=== PATIENT | female | born 1985 | race Two or more races ===

== ENCOUNTER 2016-08-10 08:38 | Inpatient (IN) | payer OTHER ==
[2016-08-10 08:56] VITALS: BMI 34.0
[2016-08-10] MEDS ORDERED: CEFAZOLIN SODIUM 2 GRAM DUPLEX 2 G in Premix (D5W) 50 ml 1 EACH IV PRN (09:59)
[2016-08-10] MEDS ORDERED: MORPHINE SULFATE (DURAMORPH) 1 MG/ML 10ML AMP ONE (10:08)
[2016-08-10] MEDS ORDERED: FAMOTIDINE 10 MG/ML 2ML VIAL ONE (10:08)
[2016-08-10] MEDS ORDERED: FENTANYL 100 MCG/2 ML VIAL ONE (10:08)
[2016-08-10] MEDS ORDERED: ONDANSETRON 4 MG/2ML 2 ML VIAL ONE (10:08)
[2016-08-10] MEDS ORDERED: METOCLOPRAMIDE HCL 5 MG/ML 2ML VIAL ONE (10:08)
[2016-08-10] MEDS ORDERED: OXYTOCIN 10 UNITS/ML VIAL ONE (10:08)
[2016-08-10] MEDS ORDERED: IV START KIT ONE (10:09)
[2016-08-10] MEDS ORDERED: CEFAZOLIN SODIUM 2 GRAM DUPLEX 50 ML IV ONE (10:10)
--- NOTE | 2016-08-10 10:11 | PDOC36 ---
Provider Note Note: cc: Admission H&P HPI: 30 y.o. year old SHIRAZ 08/25/2016, by Last Menstrual Period at 37w6d who presented to L&D this AM with contractions q3-10 min. She was triaged and noted to have a SVE of 3/50/-2. REVIEW OF SYSTEMS GENERAL:~ No fever or headache EYES:~ No double or blurry vision. CARDIOVASCULAR:~ No chest pain. RESPIRATORY:~ No severe shortness of breath or cough. GASTROINTESTINAL:~ No nausea or vomiting or right upper quadrant pain.~ PSYCHIATRIC:~ No anxiety or depression. PROBLEMS Normal History of CS History of Delivery Migraine Headaches OB HISTORY #: 1, Date: 12/23/05, Sex: Male, Weight: 3.175 kg (7 lb), GA: 39w0d, Delivery: Vaginal, Spontaneous Delivery, Apgar1: None, Apgar5: None, Living: Yes, Comments : None #: 2, Date: 08/24/07, Sex: Female, Weight: 2.551 kg (5 lb 10 oz), GA: 35w6d, Delivery: , Classical, Apgar1: None, Apgar5: None, Living: Yes, Comments: Water broke prematurely, breeched baby.~ #: 3, Current PSH Section Hernia Repair Appendectomy Shoulder Arthroscopy SOC HX Reports that she has never smoked. She has never used smokeless tobacco. She reports that she does not drink alcohol or use illicit drugs. ALL No Known Allergies MEDICATIONS ~ docusate sodium (COLACE) 100 MG capsule, Take 1 capsule (100 mg total) by mouth 2 (two) times a day., Disp: 60 capsule, Rfl: 1 ~ Vit-Fe Fumarate-FA ( PLUS) 27-1 MG tablet, Take 1 tablet by mouth daily., Disp: 90 each, Rfl: 3 ~ Pyridoxine HCl (VITAMIN B-6) 25 MG tablet, Take 1 tablet (25 mg total) by mouth 3 (three) times a day as needed (Nausea)., Disp: 90 tablet, Rfl: 1 PHYSICAL EXAMINATION VITAL SIGNS:~AFVSS Estimated body mass index is 34.30 ~ Weight as of 08/08/16: 82.4 kg (181 lb 10.5 oz). Total weight gain is 8.01 kg (17 lb 10.5 oz) FHT:~ 135 moderate variability, positive accels, no decels, category I Pinch:~ q3-10 min SVE:~ 3/50-2 GENERAL:~ No distress CARDIOVASCULAR:~ Regular rate and rhythm, no murmur, JVD or pedal edema. RESPIRATORY:~ Clear to auscultation bilaterally, respiratory effort is nonlabored at rest. GASTROINTESTINAL:~ Gravid no fundal tenderness NEUROLOGIC:~ Deep tendon reflexes are 2+ in the knees.~ Cranial nerves II-XII are grossly intact. PSYCHIATRIC:~ Alert and oriented x3, judgement and memory is intact, mood is pleasant. LABS & STUDIES A+ Antibody- Rubella Immune Hep B- HIV- GC/Chlamydia- Trep- Hct 37.9% GBS Neg ULTRASOUNDS 9 wk - c/w lmp. live iup with movements noted. 19 wk - c/w lmp. girl. post placenta, no previa. normal survey and fluid. Done in [place]. 30 wk - Performed by perinatology. Growth at 37th percentile. Posterior placenta without previa. Normal amount of fluid. Normal survey. ASSESSMENT 30 y.o. year old SHIRAZ 08/25/2016, by Last Menstrual Period at 37w6d in labor PLAN Admit for repeat CS. I reviewed the risks, benefits and alternatives of a section with the patient. She understands the risk of bleeding (she states that she would accept blood products if medically necessary and consent was obtained after counseling), infection (wound infection - possibly leading to wound dehiscence, or pelvic infection) and damage to surrounding organs/tissues (including, but not limited to, bladder, bowel, ureters, uterus, ovaries/tubes, blood vessels and nerves - as well as possible fistula formation). She understands that any of the above could necessitate further treatment or surgeries. We also reviewed the alternative to section (vaginal delivery), but she would like to proceed with section. Patient understands and agrees. All questions were answered. Joe Hallman MD MPH
[2016-08-10] MEDS: LACTATED RINGERS 1,000 ML IV SCH ×2 (10:20→20:15)
[2016-08-10] MEDS ORDERED: CITRIC ACID/SODIUM CITRATE 15 ML UDCUP PO ONE (10:22)
[2016-08-10 10:44] LABS: HEMATOCRIT 38.7 % (37.0-47.0); HEMOGLOBIN 13.2 gm/l (12.0-16.0); MEAN CELL VOLUME 87.6 fl (81.0-99.0); MEAN CORPUSCULAR HEMOGLOBIN 29.9 pg (27.0-31.0); MEAN CORPUSCULAR HGB CONC 34.1 g/dl (33.0-37.0); RED CELL DISTRIBUTION WIDTH 13.7 % (11.5-14.5)
[2016-08-10] MEDS ORDERED: EPHEDRINE SULFATE UD SYR 25 MG 25 MG/5 ML SYRINGE IV ONE (11:19)
[2016-08-10] MEDS ORDERED: MORPHINE SULFATE 4 MG/ML SYRINGE IV PRN (11:30)
[2016-08-10] MEDS ORDERED: NALBUPHINE HCL 20 MG/ML AMP IV PRN (11:30)
[2016-08-10] MEDS ORDERED: PROMETHAZINE HCL 25 MG/ML VIAL IM PRN (11:30)
[2016-08-10] MEDS ORDERED: MORPHINE SULFATE 10 MG/ML SYRINGE IV PRN (11:30)
[2016-08-10] MEDS ORDERED: ONDANSETRON 4 MG/2ML 2 ML VIAL IV PRN ×2 (11:30→12:42)
[2016-08-10] MEDS ORDERED: HYDROMORPHONE HCL 1 MG/ML SYRINGE IV PRN (11:30)
[2016-08-10] MEDS ORDERED: NALOXONE HCL 0.4 MG/ML VIAL IV PRN (11:30)
[2016-08-10] MEDS ORDERED: HYDROMORPHONE HCL 2 MG/ML SYRINGE IV PRN (11:30)
[2016-08-10] MEDS ORDERED: DIPHENHYDRAMINE HCL 50 MG/1 ML VIAL IV PRN ×2 (11:30→12:42)
[2016-08-10] MEDS ORDERED: MORPHINE SULFATE 2 MG/ML SYRINGE IV PRN (11:30)
[2016-08-10] MEDS ORDERED: EPHEDRINE SULFATE 50 MG/ML 1ML VIAL IV PRN (11:30)
[2016-08-10] MEDS ORDERED: MIDAZOLAM HCL 1 MG/ML 2ML VIAL ONE (11:57)
[2016-08-10] MEDS ORDERED: KETOROLAC TROMETHAMINE 30 MG/ML 1 ML VIAL ONE (12:01)
--- NOTE | 2016-08-10 12:36 | PCMBPN ---
Brief Post Op Note: Date of Procedure: 08/10/16 Start Time: 11:29 Preoperative Diagnosis: 1. Term IUP, h/o c sxn desires repeat csxn and btl. labor. Postoperative Diagnosis: 1. same Procedure: rcs with btl Surgeon: Nuzhat Ball MD Assist:Iam Hallman MD Anesthesia: Joyce Theodore CRNA, spinal Findings: vertex girl, normal tubes/ovaries/placenta. heart shaped uterus. Condition: stable Complications: none IV Fluids: 2400 mLs of LR Urine Output: 100 mLs Estimated Blood Loss: 500 mLs Tourniquet Time: N/A Specimens: b fallopian tubes Implants: n/a Drains: [N/A]
[2016-08-10] MEDS ORDERED: LACTATED RINGERS 1,000 ML IV.SOLN ONE (12:39)
[2016-08-10] MEDS ORDERED: DIPHENHYDRAMINE HCL 25 MG CAPSULE PO PRN (12:42)
[2016-08-10] MEDS ORDERED: LANOLIN 50 APPLIC/7G TUBE TP PRN (12:42)
--- NOTE | 2016-08-10 13:02 | OP ---
Manisha Frazier : 1985 DATE OF SURGERY: 08/10/2016 PREOPERATIVE DIAGNOSES: 1. Term intrauterine . 2. History of section desiring repeat section with tubal ligation. 3. Labor. POSTOPERATIVE DIAGNOSES: 1. Term intrauterine . 2. History of section desiring repeat section with tubal ligation. 3. Labor. PROCEDURE: Repeat section with bilateral tubal ligation. SURGEON: Nuzhat Ball M.D. ADMINISTRATIVE ASSISTANT OFFICE MANAGER: Dr. Joe Hallman. ANESTHESIA: Performed by Joyce Theodore CRNA, Spinal. BRIEF DESCRIPTION: This is a 30-year-old G3,P2 who presented to [facility] in labor. Given her history of section she was taken back for repeat section with bilateral tubal ligation. DESCRIPTION: Patient was taken to the operating room where spinal anesthesia was placed without difficulty. She was then placed in a supine position and prepped and draped for sterile procedure. A pfannenstiel incision was then made sharply over a previous incision through the subcutaneous tissue to the level of the rectus fascia. The rectus fascia was then transversely incised with Ogden scissors. The anterior fascia was released from the underlying rectus muscle with blunt dissection and Ogden scissors. This was also performed inferiorly. The scar tissue and rectus muscles were then with blunt dissection and the parietal peritoneum was entered with blunt dissection as well. Gentle traction was applied for excellent visualization of the uterus. Bladder blade was placed. The vesicouterine peritoneum was then transversely incised with Metzenbaum scissors for the development of a bladder flap and the bladder blade was then replaced. The uterus was then entered sharply and the incision was extended laterally with gentle traction. The bag of gracia was then opened and was noted to be clear fluid. The was then vertex presentation and the head was flexed and elevated through the uterine incision. The rest of the female infant was then delivered with moderate fundal pressure. The oropharynx was bulb suctioned. The infant was dried and delay cord clamping was obtained in about a minute and a half. The cord was then clamped and cut and infant passed to registered nurse for resuscitation. Cord blood was collected and sent to the lab. Placenta was then delivered with gentle traction and the remaining blood contents wipe free with a clean dry lap. The uterus was delivered onto the abdominal wall and the remaining blood contents in the uterus were wiped free with a clean dry lap and the incision was grasped with Maradiaga clamps and then closed with 0 Vicryl running suture in the usual fashion. A extra figure of eight stitch was placed in the midline of the incision for excellent hemostasis. Attention was then turned to each fallopian tube which was then ligated as follows: proximal section was grasped with a Fayette clamp and doubly ligated with Chromic suture, an approximately 1 cm section was cut with Metzenbaum scissors and sent to the lab for assurance of fallopian origin. The mesosalpinx were then cauterized with good hemostasis. The ovaries appeared within normal limits. The remaining blood contents in the abdominal cavity were wiped free with a clean dry lap and the uterus was then placed back into the abdominal cavity. Once again, the incision was inspected and was hemostatic. The parietal peritoneum was then reapproximated with 0 Vicryl running suture in the usual fashion. There was no subfascial bleeding and the fascia was then closed with 0 Vicryl running suture starting at each corner and proceeding towards the midline. Subcutaneous tissue showed excellent hemostasis and 3 approximating stitches were placed for excellent closure of the subcutaneous tissue. The skin was then closed with a Von needle without difficulty and with excellent cosmetic results. All sponge and needle counts were reported as correct. Estimated blood loss was 500 mL. Urine output was 2400 mL. Urine was 100 mL. Patient was transported to postoperative recovery room in excellent condition. JOB: [id number]
[2016-08-10] MEDS: KETOROLAC TROMETHAMINE 30 MG/ML 1 ML VIAL IV PRN ×2 (17:09→23:01)
[2016-08-10] MEDS: DOCUSATE SODIUM 100 MG CAPSULE PO SCH (20:59)
[2016-08-11] MEDS: KETOROLAC TROMETHAMINE 30 MG/ML 1 ML VIAL IV PRN ×2 (05:14→11:11)
[2016-08-11] MEDS: LACTATED RINGERS 1,000 ML IV SCH (06:22)
[2016-08-11 06:48] LABS: HEMATOCRIT 33.6 % (37.0-47.0); HEMOGLOBIN 11.3 gm/l (12.0-16.0)
--- NOTE | 2016-08-11 08:41 | PDOC44 ---
- Subjective Day: 1 Reports Flatus, Reports Pain Tolerable, Reports , Reports Lochia Light, Reports Tolerating Regular Diet, Denies Nausea, Denies Vomiting, Denies Fever - Objective Temp Pulse Resp BP Pulse Ox 98.9 F 85 16 99/55 100 08/11/16 08:15 08/11/16 08:15 08/11/16 08:15 08/11/16 08:15 08/10/16 14:19 Lab Results 08/11/16 08/10/16 06:15 10:20 WBC 12.4 H RBC 4.42 Hgb 11.3 L 13.2 Hct 33.6 L 38.7 Plt Count 257 Current Medications Generic Name Dose Route Start Last Admin Trade Name Freq PRN Reason Stop Dose Admin Diphenhydramine HCl 25 - 50 mg 08/10/16 12:42 Benadryl PO Q6H PRN Itching (Mild/Moderate) Diphenhydramine HCl 25 - 50 mg 08/10/16 12:42 Benadryl IV Q6H PRN Itching (Severe) Diphenhydramine HCl 25 - 50 mg 08/10/16 11:30 Benadryl IV 08/11/16 11:30 Q4H PRN Itching Docusate Sodium 100 mg 08/10/16 21:00 08/10/16 20:59 Colace PO 100 mg BID DARRYL Administration Emollient Ointment 1 applic 08/10/16 12:42 [id number] TP PRN PRN sore nipples Ephedrine Sulfate 5 - 10 mg 08/10/16 11:30 Ephedrine Sulfate IV 08/11/16 11:30 Q5M PRN Hydromorphone HCl 0.5 - 2 mg 08/10/16 11:30 Dilaudid IV 08/11/16 11:30 Q1H PRN Pain (Breakthrough) Hydromorphone HCl 0.5 - 2 mg 08/10/16 11:30 Dilaudid IV 08/11/16 11:30 Q1H PRN Pain Ibuprofen 600 mg 08/10/16 12:42 Motrin PO Q6H PRN Pain Ketorolac Tromethamine 30 mg 08/10/16 17:00 08/11/16 05:14 Toradol IV 30 mg Q6H PRN Administration Pain (Mild/Moderate) Morphine Sulfate 1 - 5 mg 08/10/16 11:30 08/10/16 14:08 Morphine Sulfate IV 08/11/16 11:30 2 mg Q1H PRN Administration Pain (Breakthrough) Morphine Sulfate 1 - 5 mg 08/10/16 11:30 Morphine Sulfate IV 08/11/16 11:30 Q1H PRN Pain (Breakthrough) Morphine Sulfate 1 - 5 mg 08/10/16 11:30 Morphine Sulfate IV 08/11/16 11:30 Q1H PRN Pain (Breakthrough) Multivi/Iron Carb/Fe Sulf/FA/Prenat 1 tab 08/11/16 09:00 Plus PO DAILY DARRYL Nalbuphine HCl 1 - 5 mg 08/10/16 11:30 Nubain IV 08/11/16 11:30 Q4H PRN Itching Naloxone HCl 0.2 - 0.4 mg 08/10/16 11:30 Narcan IV 08/11/16 11:30 Q5M PRN Ondansetron HCl 4 mg 08/10/16 12:42 Zofran IV Q6H PRN Nausea/Vomiting Ondansetron HCl 4 mg 08/10/16 11:30 Zofran IV 08/11/16 11:30 Q6H PRN Nausea/Vomiting Oxycodone/Acetaminophen 1 - 2 tab 08/10/16 12:42 Percocet 5/325 PO Q4H PRN Pain (Moderate) Promethazine HCl 6.25 - 12.5 mg 08/10/16 11:30 Phenergan IM 08/11/16 11:30 Q4H PRN Nausea/Vomiting Sodium Chloride 10 ml 08/10/16 17:00 08/11/16 03:17 Normal Saline 10ml Flush IV Not Given Q8HR DARRYL Sodium Chloride 10 ml 08/10/16 10:00 08/11/16 05:15 Normal Saline 10ml Flush IV 10 ml PRN PRN Administration - Physical Exam General: Afebrile, No Acute Distress Psych/Mental Status: Mood/Affect Appropriate, Bonding Well Lungs: Clear to Auscultation Bilaterally Cardiovascular: Regular Rate and Rhythm, Murmur (2/6, flow murmur) Breast: Soft, Skin intact Fundus: Firm, Midline, At Umbilicus Extremities: No Edema, No Tenderness Skin: Warm, Dry, No Rash Wound SENIOR TECHNICAL PROGRAM MANAGER: Dressing in Place, Dressing Clean/Dry/Intact, No Shadow Drainage - Problems:Assessment/Plan (1) delivery delivered Status: AcuteAssessment/Plan: Doing well. Routine post op care. A/W breast feeding. Disposition: Stable
[2016-08-11] MEDS: DOCUSATE SODIUM 100 MG CAPSULE PO SCH ×2 (09:33→22:53)
[2016-08-11] MEDS: PRENATAL VIT/FE FUMARATE/FA 1 TABLET PO SCH (09:33)
[2016-08-11] MEDS: OXYCODONE/ACETAMINOPHEN 5/325 MG TABLET PO PRN ×2 (11:12→19:09)
[2016-08-11] MEDS: IBUPROFEN 600 MG TABLET PO PRN ×2 (17:10→22:53)
[2016-08-12] MEDS: IBUPROFEN 600 MG TABLET PO PRN ×3 (04:56→16:57)
[2016-08-12] MEDS: OXYCODONE/ACETAMINOPHEN 5/325 MG TABLET PO PRN ×4 (08:21→21:29)
[2016-08-12] MEDS: PRENATAL VIT/FE FUMARATE/FA 1 TABLET PO SCH (08:58)
[2016-08-12] MEDS: DOCUSATE SODIUM 100 MG CAPSULE PO SCH ×2 (08:58→21:29)
[2016-08-12] MEDS ORDERED: DIPHTH,PERTUSS(ACELL),TET VAC 0.5 ML VIAL IM V ONE (10:59)
--- NOTE | 2016-08-12 12:46 | PDOC44 ---
- Subjective Day: 2 (post-operative day 2) Patient doing well. Pain controlled with medications, passing flatus, tolerating PO. Ambulating without dizziness. Plans to work on BF today. Lochia minimal. Reports Flatus, Reports Pain Tolerable, Reports , Reports Lochia Light, Reports Tolerating Regular Diet, Denies Nausea, Denies Vomiting - Objective Temp Pulse Resp BP Pulse Ox 97.9 F 90 18 106/59 100 08/12/16 08:45 08/12/16 08:45 08/12/16 08:45 08/12/16 08:45 08/10/16 14:19 Current Medications Generic Name Dose Route Start Last Admin Trade Name Freq PRN Reason Stop Dose Admin Diphenhydramine HCl 25 - 50 mg 08/10/16 12:42 Benadryl PO Q6H PRN Itching (Mild/Moderate) Docusate Sodium 100 mg 08/10/16 21:00 08/12/16 08:58 Colace PO 100 mg BID DARRYL Administration Emollient Ointment 1 applic 08/10/16 12:42 08/12/16 08:58 [id number] TP 1 tube PRN PRN Administration sore nipples Ibuprofen 600 mg 08/10/16 12:42 08/12/16 11:15 Motrin PO 600 mg Q6H PRN Administration Pain Multivi/Iron Carb/Fe Sulf/FA/Prenat 1 tab 08/11/16 09:00 08/12/16 08:58 Plus PO 1 tab DAILY DARRYL Administration Oxycodone/Acetaminophen 1 - 2 tab 08/10/16 12:42 08/12/16 08:21 Percocet 5/325 PO 1 tab Q4H PRN Administration Pain (Moderate) - Physical Exam General: Afebrile, No Acute Distress Psych/Mental Status: Mood/Affect Appropriate, Bonding Well Neurological: Alert, Normal Gait, Normal Speech Lungs: Clear to Auscultation Bilaterally, Normal Air Movement Cardiovascular: Regular Rate and Rhythm, Normal S1, Normal S2 Fundus: Firm, Midline Extremities: Full ROM, No Edema, No Tenderness Skin: Normal Color, Warm, Dry, Intact, No Rash Wound HOSPICE MASSAGE THERAPIST: Well Approximated, No Drainage, No Erythema - Problems:Assessment/Plan (1) delivery delivered Status: AcuteAssessment/Plan: Doing well. Routine post op care. A/W breast feeding. POD #2, anticipate d/c tomorrow Disposition: Stable, Anticipate DC Home Tomorrow
[2016-08-13] MEDS: IBUPROFEN 600 MG TABLET PO PRN ×2 (00:27→08:38)
[2016-08-13] MEDS: OXYCODONE/ACETAMINOPHEN 5/325 MG TABLET PO PRN ×2 (04:48→12:58)
[2016-08-13 08:38] VITALS: BP 111/69
[2016-08-13] MEDS: PRENATAL VIT/FE FUMARATE/FA 1 TABLET PO SCH (08:38)
[2016-08-13] MEDS: DOCUSATE SODIUM 100 MG CAPSULE PO SCH (08:38)
--- NOTE | 2016-08-13 09:24 | PDOC39B ---
Hospital Course: ADMIT DATE: 08/10/16 DISCHARGE DATE: 08/13/16 ADMISSION DIAGNOSES: History of previous section, active labor PROCEDURES: Repeat low transverse section and bilateral tubal ligation HISTORY OF PRESENT ILLNESS: 30 year old G3 T1 L2 at 37 weeks 6 days presenting with active labor and history of previous section, desiring elective repeat and bilateral tubal ligation. Decision was made to proceed with repeat section. HOSPITAL COURSE: The patient was admitted in active labor. Repeat section was performed without complication. She delivered a viable female , apgars 9/9, weight 2892 gm. Her post-operative Hgb 11.3. By postoperative day one she was tolerating diet, ambulating without dizziness. Pain was controlled with medications. She received support. By day of discharge the patient is ambulating, eating, voiding, and passing flatus without difficulty. Pain is controlled and lochia is appropriate. She is and feeding plan is in place. - Physical Exam Vital Signs: Temp Pulse Resp BP Pulse Ox 98.4 F 85 16 111/69 100 08/13/16 08:26 08/13/16 08:26 08/13/16 08:26 08/13/16 08:26 08/10/16 14:19 General: Afebrile, No Acute Distress Psych/Mental Status: Mood/Affect Appropriate, Bonding Well Neurological: Alert, Oriented x 4, Normal Gait, Normal Speech Lungs: Clear to Auscultation Bilaterally Cardiovascular: Regular Rate and Rhythm Fundus: Firm, Midline Extremities: Full ROM, No Edema Skin: Normal Color, Warm, Dry, Intact, No Rash Wound: Well Approximated, No Drainage, No Erythema - Discharge Diagnosis (1) delivery delivered Status: AcuteAssessment/Plan: Doing well. POD #3 s/p Repeat and BTL Stable for discharge Will follow up with PCP in 2 days - Discharge Plan Condition: Good Disposition: Home Prescriptions: Docusate Sodium [COLACE 100 MG CAPSULE (SHF)] 100 mg PO BID PRN #60 PRN Reason: Constipation Ibuprofen [IBUPROFEN 600 MG TABLET (SHF)] 600 mg PO Q6H PRN #40 PRN Reason: Pain Oxycodone HCl/Acetaminophen [PERCOCET 5/325 MG TABLET (SHF)] 1 - 2 tab PO Q4H PRN #40 PRN Reason: Pain (Moderate) Follow-Up: Nuzhat Ball MD [Primary Care Provider] - 08/15/16
== END 2016-08-13 13:28 | disposition home or self-care (01) | DRG 766 ==
LOC: FBCOUT 08:38 → FBC 08:44 → FBCOUT 09:37
PROVIDERS: ADMIT Family Medicine; ATTEND Family Medicine
PROC: 10D00Z1 Extraction of Products of Conception, Low, Open Approach (ICD-10-PCS; principal; 2016-08-10)
PROC: 0UL70ZZ Occlusion of Bilateral Fallopian Tubes, Open Approach (ICD-10-PCS; 2016-08-10)
DX: O34.211 Maternal care for low transverse scar from previous cesarean delivery (principal); Z37.0 Single live birth; Z30.2 Encounter for sterilization; Z3A.37 37 weeks gestation of pregnancy

== ENCOUNTER 2016-08-14 16:41 | Outpatient (CLI) | payer OTHER | END 2016-08-14 16:42 | disposition home or self-care (01) | LOC: BABIESSH 16:41 | PROVIDERS: ATTEND Family Medicine | DX: Z39.1 Encounter for care and examination of lactating mother (principal) ==

== ENCOUNTER 2016-08-16 12:46 | Outpatient (CLI) | payer OTHER | END 2016-08-16 12:47 | disposition home or self-care (01) | LOC: BABIESSH 12:46 | PROVIDERS: ATTEND Family Medicine | DX: Z39.1 Encounter for care and examination of lactating mother (principal) ==

== ENCOUNTER 2016-08-25 11:01 | Outpatient (CLI) | payer OTHER | END 2016-08-25 11:02 | disposition home or self-care (01) | LOC: BABIESSH 11:01 | PROVIDERS: ATTEND Family Medicine | DX: Z39.1 Encounter for care and examination of lactating mother (principal) ==